=== PATIENT | male | born 1975 | race American Indian/Alaskan Native ===

== ENCOUNTER 2018-03-14 19:13 | Emergency (ER) | payer OTHER ==
[2018-03-14] MEDS ORDERED: Sodium Bicarbonate (8.4%) 50 Meq Syringe IV ONE ×2 (19:14→19:20)
[2018-03-14] MEDS ORDERED: Calcium Chloride 1000 mg/10 ml Syringe IV ONE (19:22)
[2018-03-14 19:26] VITALS: BP 102/60; PULSE 107; RESP 28
--- NOTE | 2018-03-14 19:45 | C.PDOC ---
Time Seen by Provider: 03/14/18 19:30 Chief Complaint (Nursing): Cardiac Arrest Past Medical History Vital Signs: Last Vital Signs Temp Pulse 107 H 03/14/18 19:17 Resp 28 H 03/14/18 19:17 BP 102/60 03/14/18 19:17 Pulse Ox - Social History Hx Alcohol Use: No Hx Substance Use: No - Immunization History Hx Tetanus Toxoid Vaccination: No Hx Influenza Vaccination: No Hx Pneumococcal Vaccination: No Disposition - Disposition
--- NOTE | 2018-03-14 20:47 | C.PDOC ---
History Of Present Illness 42 year old male is brought to the ED by ambulance for evaluation. As per EMS, patient was at a family gathering when he collapsed at around 1810 today. Patient arrived in the ED at 1910 with CPR in progress. Patient's initial rhythm was shockable x2. ACLS protocol was followed in field. Patient presented to the ED intubated with 7.5French ET tube at 25cm at the lips. As per EMS, patient has been in asystole for the past 45 minutes. Additional history limited secondary to patient's clinical condition. Time Seen by Provider: 03/14/18 19:30 Chief Complaint (Nursing): Cardiac Arrest History Per: EMS Reason For Code Blue: Unresponsive Circumstances: Brought To ED By EMS Arrest Witnessed By: Family CPR Initiated Prior To MD Arrival?: Yes Down-Time Before ACLS: Unknown Treatment Initiated Prior To MD Arrival: Yes: CPR - Initial Findings Rhythm: Asystole Past Medical History Reviewed: Historical Data, Nursing Documentation, Vital Signs Vital Signs: Last Vital Signs Temp Pulse 107 H 03/14/18 19:17 Resp 28 H 03/14/18 19:17 BP 102/60 03/14/18 19:17 Pulse Ox - Medical History PMH: No Chronic Diseases Surgical History: No Surg Hx Family History: States: Unknown Family Hx - Social History Hx Alcohol Use: No Hx Substance Use: No - Immunization History Hx Tetanus Toxoid Vaccination: No Hx Influenza Vaccination: No Hx Pneumococcal Vaccination: No Review Of Systems Review Of Systems: ROS cannot be obtained secondary to pt's inabilty to answer questions. Physical Exam - Physical Exam Appears: Other (obese black male; 7.5French ET tube at 25cm at the lips, which was repositioned to 23cm ) Skin: Normal Color, Warm, Dry Head: Atraumatic, Normacephalic Eye(s): bilateral: Other (pupils fixed and dilated) Oral Mucosa: Moist Neck: Supple Chest: Symmetrical, No Deformity, No Tenderness Cardiovascular: Rhythm Regular, No Murmur, No JVD Respiratory: Other (equal breath sounds bilaterally ) Gastrointestinal/Abdominal: Soft, Other (obese) Extremity: Other (inguinal pulses with Donell device, IO in left tibia ) Neurological/Psych: Other (unresponsive ) ED Course And Treatment Progress Note: ACLS protocol continued to be followed. Patient with persistent asystole. Time of 1925. Medical Decision Making Medical Decision Making: ME contacted, will consider autopsy certificate completed as able by this MD obesity, DM, family h/o early cardiac by father @ age 42 LOW suspicion of unnatural causes Disposition - Disposition Referrals: America Uriostegui MD [Primary Care Provider] - Disposition: WITH WITHOUT AUTOPSY Disposition Time: 23:00 Condition: Forms: [employer] ([place]) - Clinical Impression Clinical Impression: Cardiac arrest Critical Care Time - Critical Care Note Total Time (in mins): 90 Documented critical care: time excludes all time spent performing seperately billable procedures.
== END 2018-03-15 00:25 ==
LOC: SUPCPDRO 19:13 → C.ER 19:13
DX: I46.9 Cardiac arrest, cause unspecified (principal)